=== PATIENT | female | born 1995 | race Caucasian/White ===

== ENCOUNTER 2020-10-23 23:18 | Emergency (ER) | payer MEDICAID, SELFPAY ==
[2020-10-23 23:21] VITALS: PULSE 96; RESP 16; TEMP 37.3; O2SAT 99; BMI 46.0
--- NOTE | 2020-10-23 23:52 | CT_ITS ---
PROCEDURE INFORMATION: Exam: CT Abdomen And Pelvis With Contrast Exam date and time: 10/23/2020 11:52 PM Age: 24 years old Clinical indication: Abdominal pain; Prior surgery; Surgery date: 1-6 months; Surgery type: Csection; Additional info: Abd pain TECHNIQUE: Imaging protocol: Computed tomography of the abdomen and pelvis with contrast. Radiation optimization: All CT scans at this facility use at least one of these dose optimization techniques: automated exposure control; mA and/or kV adjustment per patient size (includes targeted exams where dose is matched to clinical indication); or iterative reconstruction. Contrast material: ISOVUE; Contrast volume: 75 ml; Contrast route: IV; COMPARISON: No relevant prior studies available. FINDINGS: PANCREATICOHEPATOBILIARY: Enlarged liver shows probable diffuse fatty infiltration. No significant intra-or extrahepatic ductal dilation. Gallbladder is contracted/incompletely distended. Pancreas and spleen are unremarkable. . GENITOURINARY: No adrenal mass. Both kidneys are unremarkable without hydronephrosis. Empty urinary bladder. Prominent/mildly thickened endometrium likely normal/physiologic for the patient's age. Dominant LEFT ovarian cyst/follicle measuring approximately 3.1 cm. No free fluid in the pelvis. . GASTROINTESTINAL: Colon contains a moderate amount of fecal matter. A few colonic diverticula. Prominent air and fluid-filled loops of small bowel likely within normal limits. No free intraperitoneal air or fluid collection. A normal APPENDIX is visualized. . OTHER STRUCTURES: Aorta appears unremarkable without evidence of aortic aneurysm. Normal size and mildly enlarged mesenteric/retroperitoneal lymph nodes. Mild positional scoliosis. IMPRESSION: Nonemergent/incidental findings as described without any acute abdominopelvic abnormality.
[2020-10-23 23:55] LABS: Microscopic, Urine URINE MICROSCOPIC (MICROSCOPIC)
[2020-10-23 23:57] LABS: Appearance,Urine SL CLOUDY (Clear); Bilirubin,Urine Negative (Negative); Blood, Urine Negative (Negative); Color,Urine YELLOW (Yellow); Glucose,Urine (UA) Negative (Negative); Ketones,Urine Negative (Negative); Leukocyte Esterase,Urine Negative (Negative); Nitrate,Urine POSITIVE (Negative); Protein,Urine Negative (Negative); Urobilinogen,Urine 0.2 EU/dl (0.2)
--- NOTE | 2020-10-24 00:01 | [facility].EDNVD ---
ED Disposition Clinical Impression: UTI (urinary tract infection) Qualifiers: Urinary tract infection type: site unspecified Hematuria presence: without hematuria Qualified Code(s): N39.0 - Urinary tract infection, site not specified Abdominal pain Qualifiers: Abdominal location: generalized Qualified Code(s): R10.84 - Generalized abdominal pain Disposition: Home, Self-Care Condition on Discharge: Good Instructions: DI for Acute Abdominal Pain, DI for Urinary Tract Infection (UTI) Additional Instructions: fluids and call pcp about urine culture Prescriptions: levoFLOXacin [Levaquin 500mg tab] 500 mg PO DAILY #7 tab Transmission Status: Pending to [facility] #[id number] Referrals: Mere Sampson PA [Primary Care Provider] - - Critical Care Critical Care Time: No Attestation: On 10/23/20, the high probability of a clinically significant, sudden or life threatening deterioration of the following system(s) required my full and direct attention, intervention and personal management. The time I documented below is in addition to time spent performing reported procedures but includes the following listed in this critical care notation. Medical Decision Making - Medical Records Medical records reviewed: Yes: I reviewed the patient's medical records. - [place] Inquiry Pt receiving controlled substance: No Vital Signs: 10/23/20 23:21 Temperature 99.2 F Temperature Source Oral Pulse Rate [Right] 96 H Respiratory Rate 16 02 Sat by Pulse Oximetry 99 - Lab Data Lab results reviewed: Yes: I reviewed the patient's lab results. Lab Results 10/23/20 23:28: Urine Color Yellow, Urine Appearance Sl cloudy, Urine pH 6.0, Ur Specific [place] 1.020, Urine Protein Negative, Urine Glucose (UA) Negative, Urine Ketones Negative, Urine Blood Negative, Urine Nitrate Positive, Urine Bilirubin Negative, Urine Urobilinogen 0.2, Ur Leukocyte Esterase Negative, Urine WBC 10-20, Ur Squamous Epith Cells Occasional, Urine Bacteria 4+ 10/24/20 00:01: Serum HCG, Qual Negative 10/24/20 00:01: WBC 10.6, RBC 4.90, Hgb 13.0, Hct 40.6, MCV 82.7, MCH 26.5 L, MCHC 32.1, RDW 14.7, Plt Count 316, MPV 9.8, Neut % (Auto) 55.5, Lymph % (Auto) 36.0, [place] % (Auto) 4.0, Eos % (Auto) 3.5, Baso % (Auto) 0.9, Neut # (Auto) 5.9, Lymph # (Auto) 3.8, [place] # (Auto) 0.4, Eos # (Auto) 0.4, Baso # (Auto) 0.1, ESR 20 10/24/20 00:01: Sodium 137, Potassium 3.6, Chloride 103, Carbon Dioxide 27, Anion Gap 10.6, BUN 9, Creatinine 0.80, Estimated Creat Clear 91, Estimated GFR 90, Est GFR ( Amer) 109, Glucose 121 H, Calcium 8.9, Total Bilirubin 0.2, AST 21, ALT 13, Alkaline Phosphatase 89, C-Reactive Protein 10.2 H, Total Protein 7.1, Albumin 3.9, Globulin 3.2, Albumin/Globulin Ratio 1.2, Amylase 48, Lipase 48, Procalcitonin 0.035 Result diagrams: 10/24/20 00:01 10/24/20 00:01 Orders (Tests/Meds): ED MEDICATIONS Generic Name Dose Route Start Last Admin Trade Name Freq PRN Reason Stop Dose Admin Sodium Chloride 1,000 mls @ 999 mls/hr 10/24/20 01:15 10/24/20 01:08 Sod Chlor 0.9% 1000ml Bag IV 10/24/20 02:15 999 mls/hr .Q1H1M CAM Administration Ceftriaxone Sodium 1 gm/ 50 mls @ 100 mls/hr 10/24/20 01:30 10/24/20 01:19 Sodium Chloride IV 11/07/20 01:29 100 mls/hr Q24H CAM Administration Sodium Chloride 8 ml 10/24/20 01:06 Sodium Chloride 0.9% 10ml Vial IV 11/23/20 01:05 NEEDED PRN dilute pepcid Discontinued Medications Generic Name Dose Route Start Last Admin Trade Name Freq PRN Reason Stop Dose Admin Acetaminophen/Codeine Phosphate 1 efe 10/24/20 01:19 10/24/20 01:19 Acetaminophen 300mg W/Codeine 30mg Take Home Pack (6) PO 10/24/20 01:20 1 efe ONCE ONE Administration Famotidine 20 mg 10/24/20 01:06 10/24/20 01:09 Famotidine 20mg/2ml Vial IV 10/24/20 01:07 20 mg ONCE ONE Administration Iopamidol 75 ml 10/24/20 00:46 10/24/20 00:47 Iopamidol-370 (76%);100ml Bottle IV
[2020-10-24 00:04] LABS: Bacteria,Urine 4+ /lpf; Squamous Epithelial Cell,Urine Occasional #/hpf (0-5)
[2020-10-24 00:13] LABS: Basophils # 0.1 K/mm3 (0-0.2); Basophils % 0.9 % (0.1-2.0); Eosinophils # 0.4 K/mm3 (0.0-0.4); Eosinophils % 3.5 % (0.1-12.0); Hematocrit 40.6 % (37.0-47.0); Lymphocytes # 3.8 K/mm3 (0.7-4.5); Mean Corpuscular HGB Conc 32.1 g/dL (31.8-35.4); Mean Corpuscular Hemoglobin 26.5 pg (27.0-31.2); Mean Corpuscular Volume 82.7 fl (81-99); Mean Platelet Volume 9.8 fl (7.4-10.4); Monocytes # 0.4 K/mm3 (0.1-1.0); Neutrophils # 5.9 K/mm3 (1.8-7.8); Neutrophils % 55.5 % (37.0-80.0); Platelet Count 316 K/mm3 (142-424); Red Cell Distribution Width 14.7 % (11.5-17.5); White Blood Count 10.6 K/mm3 (4.8-10.8)
[2020-10-24 00:22] LABS: Alanine Aminotransferase 13 U/L (12-78); Albumin Level 3.9 g/dl (3.5-5.0); Albumin/Globulin Ratio 1.2 (1.1-1.8); Alkaline Phosphatase 89 U/L (38-126); Amylase 48 U/L (30-110); Anion Gap 10.6 mEq/L (5-15); Aspartate Amino Transferase 21 U/L (14-36); Bilirubin,Total 0.2 mg/dl (0.2-1.3); Blood Urea Nitrogen 9 mg/dl (7-17); Calcium 8.9 mg/dl (8.4-10.2); Carbon Dioxide 27 mmol/L (22.0-30.0); Chloride 103 mmol/L (98-107); Creatinine Clearance Estimated 91 mL/min (50-200); Estimated Glomerular Filt Rate 90 ml/min (>60); GFR (African American) 109 ML/MIN (>60); Globulin 3.2 g/dL (1.3-3.2); Glucose 121 mg/dl (74-100); Lipase 48 U/L (23-300); Potassium 3.6 mmoL/L (3.5-5.1); Sodium 137 mmol/L (136-145); Total Protein,Serum 7.1 g/dl (6.3-8.2)
[2020-10-24 00:28] LABS: C-Reactive Protein 10.2 mg/L (0-4); HCG Qualitative, Serum Negative (Negative)
[2020-10-24 00:36] LABS: Erythrocyte Sedimentation Rate 20 mm/hr (0-20)
[2020-10-24 00:41] LABS: Procalcitonin 0.035 ng/mL (0.0-2.0)
[2020-10-24 01:26] VITALS: BP 144/71; PULSE 80; RESP 18; TEMP 37.1; O2SAT 99
== END 2020-10-24 01:28 | disposition home or self-care (01) ==
PROVIDERS: Emergency Provider Emergency Medicine; PCP Nurse Practitioner Family
DX: N30.00 Acute cystitis without hematuria (principal); B96.20 Unspecified Escherichia coli [E. coli] as the cause of diseases classified elsewhere
CPT/HCPCS: 74177; 80053; 81001; 82150; 83690; 84145; 84703; 85025; 85651; 86140; 87086; 87088; 87186; 96365; 96367; 96375; 99283; J2405; Q9967